=== PATIENT | male | born 1960 | race Caucasian/White ===

== ENCOUNTER 2016-06-17 00:34 | Emergency (ER) | payer SELFPAY ==
[~2016-06-17] VITALS: Ht 175.3 cm; Wt 62.9 kg
[2016-06-17 01:44] VITALS: BP 119/71
== END 2016-06-17 01:46 ==
LOC: EME 00:34
DX: S00.412A Abrasion of left ear, initial encounter (principal); Z02.89 Encounter for other administrative examinations; W19.XXXA Unspecified fall, initial encounter; F17.200 Nicotine dependence, unspecified, uncomplicated
CPT/HCPCS: 99281; 99284